=== PATIENT | female | born 1945 | race Caucasian/White ===

== ENCOUNTER → 2017-03-28 | Outpatient (CLI) | payer OTHER ==
--- NOTE | ~2017-03-28 | US136 ---
[facility] A Service of [facility] RADIOLOGY TEXT RESULTS PATIENT: AMERICA BIRCH LOCATION: CNIV : 49 UNIT #: [id number] AGE: [address]: ANGELLA SILVERMAN MD SEX: F ORDER DR: [id number] [place], [place] [address] [id number] O MR#: [id number] Acc #: [id number] NAME: AMERICA BIRCH : 1945 SEX: F STUDY DATE/TIME: 03/28/2017 9:59 UNIT: [facility] ROOM: STUDY DESCRIPTION: U/L Ext Art Study Ltd Bilat Attending Physician: Angella Silverman M.D. Ordering Physician: Angella Silverman M.D. MEDICAL IMAGING REPORT This report is preliminary unless electronic signature is present EXAM Ankle-brachial indices 03/28/2017 HISTORY Right side claudication. Claudication right calf for 2 years. Numbness left foot 2 years. FINDINGS Ankle-brachial indices performed bilaterally. All pressure measurements in mmHg. Right brachial pressure 154, left brachial pressure 150. Distal right lower extremity pressures as follows: Dorsalis pedis at ankle 162, posterior tibial at ankle 179, great toe 144. Ankle-brachial index 1.16. Pulse volume recordings within normal limits. On the left, distal pressures as follows: Dorsalis pedis at ankle 161, posterior tibial at ankle 169, great toe 99. Ankle-brachial index 1.10. Pulse volume recordings within normal limits. IMPRESSION 1. Ankle-brachial indices of 1.16 on the right and 1.10 on the left are normal values. There appears to be adequate perfusion of the bilateral lower extremities through the level of the bilateral ankles. 2. Significant pressure gradient between the left ankle and left great toe with toe-brachial index 0.64. This may be a reflection of potentially hemodynamically significant small vessel disease in the left foot, distal to the ankle. Correlate clinically. If it would assist in management, the lower extremity arterial anatomy could be further evaluated with CT angiography. Dictated by... [facility] A Service of [facility] RADIOLOGY TEXT RESULTS PATIENT: AMERICA BIRCH LOCATION: [facility] : [birth year] UNIT #: [id number] AGE: [address]: ANGELLA SILVERMAN MD SEX: F ORDER DR: Deandre Tatum M.D. THIS IS AN ELECTRONICALLY VERIFIED REPORT Deandre Tatum M.D. at 03/31/2017 5:45 PM CHRIS/gogo TD: 03/28/2017 22:05 JOB #: [id number] MEDICAL IMAGING REPORT Page 1 of 1 COPY
== END | disposition home or self-care (01) ==
LOC: CNIV 09:40
DX: E11.51 Type 2 diabetes mellitus with diabetic peripheral angiopathy without gangrene (principal); I73.9 Peripheral vascular disease, unspecified; I12.9 Hypertensive chronic kidney disease with stage 1 through stage 4 chronic kidney disease, or unspecified chronic kidney disease; E11.22 Type 2 diabetes mellitus with diabetic chronic kidney disease; N18.9 Chronic kidney disease, unspecified
CPT/HCPCS: 93922

== ENCOUNTER 2017-04-13 16:46 | Emergency (ER) | payer OTHER ==
--- NOTE | ~2017-04-13 | EKG ---
PATIENT: AMERICA BURCH UNIT #: [id number] Ventricular Rate: 103 BPM Atrial Rate: 103 BPM P-R Interval: 182 ms QRS Duration: 66 ms Q-T Interval: 336 ms QTC Calculation(Bezet): 440 ms P [place]: 26 degrees Calculated R [place]: -10 degrees Calculated T [place]: 34 degrees Diagnosis Line: Sinus tachycardia Diagnosis Line: Otherwise normal ECG Diagnosis Line: No previous ECGs available Diagnosis Line: Confirmed by KELVIN MELVIN MD ([id number]) on Diagnosis Line: 04/14/2017 5:02:38 PM INTERPRETING MD: LOS
[2017-04-13 17:21] LABS: BASOPHIL% 0.2 % (0-2.5); EOSINOPHIL# 0.1 X10e3 (0-0.7); EOSINOPHIL% 0.9 % (0.0-7.0); HEMATOCRIT 41.4 % (35.0-45.0); LYMPHOCYTE# 1.8 X10e3 (1.0-3.5); LYMPHOCYTE% 14.7 % (17.0-45.0); MEAN CELL VOLUME 82.7 FL (83-96); MEAN CORPUSCULAR HEMOGLOBIN 27.9 PG (28-34); MEAN CORPUSCULAR HGB CONC 33.8 g/dL (30-36); MEAN PLATELET VOLUME 8.5 FL (6.5-11.5); MONOCYTE# 0.9 X10e3 (0-1.0); NEUTROPHIL# 9.4 X10e3 (1.5-7.1); NEUTROPHIL% 77.2 % (40-75); PLATELET COUNT 239 X10e3 (140-420); RED CELL DISTRIBUTION WIDTH 14.2 % (11.0-15.5); WHITE BLOOD COUNT 12.1 X10e3 (4.0-10.5)
[2017-04-13 17:27] LABS: DIFF IND NO
[2017-04-13 17:40] LABS: ALBUMIN SERUM 4.1 g/dL (3.5-5.0); BILIRUBIN, DIRECT 0.1 mg/dL (0.0-0.2); BILIRUBIN,INDIRECT 0.9 mg/dL (0.0-0.9); CALCIUM SERUM 9.1 mg/dL (8.4-10.2); CREATININE SERUM 0.9 mg/dL (0.6-1.4); GLOM FILT RATE Estimated 64.8 mL/min (>60); POTASSIUM 3.7 mmol/L (3.5-5.1); PROTEIN TOTAL SERUM 8.2 g/dL (6.0-8.3)
[2017-04-13 18:31] LABS: POC - CKMB 2.3 ng/mL (0.0-7.9); POC - TROPONIN <0.05 ng/mL (<=0.05)
[2017-04-13 18:41] LABS: URINE SOURCE CLEAN CATCH
[2017-04-13 18:46] LABS: URINE APPEARANCE CLEAR; URINE BILIRUBIN NEG (NEG); URINE BLOOD TRACE (NEG); URINE COLOR YELLOW; URINE GLUCOSE NEG (NEG); URINE KETONE NEG (NEG); URINE LEUKOCYTE ESTERASE NEG (NEG); URINE NITRATE NEG (NEG); URINE PH 5.5 (5-8); URINE PROTEIN 1+ (NEG); URINE SPECIFIC GRAVITY 1.011 (1.003-1.035); URINE UROBILINOGEN 0.2 MG/DL (NEG)
[2017-04-13 18:50] LABS: URBCS1 AUWI 0-2 /[HPF] (0-2); URINE BACTERIA AUWI NEG (NEGATIVE); URINE SQUAMOUS EPITHELIAL CELL NONE SEEN /[HPF]
[2017-04-13 18:51] LABS: CULTURE INDICATED? NO
== END 2017-04-13 19:44 | disposition home or self-care (01) ==
LOC: CED 16:46
PROVIDERS: Emergency Medicine
DX: I10 Essential (primary) hypertension (principal); R53.83 Other fatigue; R53.1 Weakness; E11.9 Type 2 diabetes mellitus without complications
CPT/HCPCS: 36415; 80048; 80076; 81003; 82553; 82947; 84484; 85025; 93005; 99285